=== PATIENT | male | born 1965 | race Caucasian/White ===

== ENCOUNTER 2020-08-20 13:04 | Outpatient (CLI) | payer OTHER, SELFPAY ==
--- NOTE | 2020-08-20 13:06 | MR_ITS ---
WS: [id number] INDICATION: Possible ruptured right biceps tendon TECHNIQUE: MRI of the right elbow without gadolinium enhancement. Imaging is limited due to patient p ositioning and inability to rotate arm. Imaging performed with elbow slightly bent. FINDINGS: MR of the right elbow without gadolinium enhancement. Some images degraded by patient dasha n. High-grade tear involving the distal biceps tendon with apparent complete tear at the radial tuber osity insertion. Edema at the radial tuberosity and surrounding soft tissues. Normal appearing tendon retracted approximately 4.0 cm from the radial tuberosity insertion. Normal bone marrow signal in the distal humerus. 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 Normal radial head and neck. Normal olecranon. No acute fractures. Diffuse soft tissue edema involving the antecubital soft tissues. MR/MR elbow RT wo con* [id number] IMPRESSION: Limited examination due to patient positioning described above. 1. High-grade tear of the distal biceps tendon with no normal tendon visualize d distally. Tendon appears avulsed from the radial tuberosity. 2. Normal-appearing tendon is retracted proximally approximately 4.0 cm with fluid involving the distal biceps tendon sheath. 3. Small amount of edema at the radial tuberosity. No visualized fractures. 4. Diffuse edema in the distal upper arm anterior soft tissues extending to th e antecubital fossa.
== END 2020-08-20 13:05 | disposition home or self-care (01) ==
LOC: RADWPI 13:10
PROVIDERS: PCP Family Medicine; Visit Provider Registered Nurse
DX: M25.521 Pain in right elbow (principal); S46.211A Strain of muscle, fascia and tendon of other parts of biceps, right arm, initial encounter; X58.XXXA Exposure to other specified factors, initial encounter; R60.0 Localized edema
CPT/HCPCS: 73221

== ENCOUNTER 2023-01-01 07:46 | Outpatient (CLI) | payer MEDICARE, BC, MEDICAID, SELFPAY ==
[2023-01-01 08:41] LABS: Creatinine Urine, Random 79 mg/dL (39-259); Microalbum Creatinine Ratio Ur 13 mg/dL (0-20); Microalbumin Random Urine 1 ug/dL (0-20)
[2023-01-01 08:43] LABS: Alanine Aminotransferase 21 U/L (0-41); Albumin Level 3.8 g/dL (3.5-5.2); Alkaline Phosphatase 115 U/L (40-130); Anion Gap 9.7 (5-19); Aspartate Amino Transferase 20 U/L (0-40); Blood Urea Nitrogen 10 mg/dL (6-20); Carbon Dioxide 32 mmol/L (22-29); Chloride 93 mmol/L (98-107); Chol HDL Ratio 2.54 mg/dL (1.0-5.00); Cholesterol 160 mg/dL (0-200); Globulin 2.6 g/dL (1.3-4.6); Glomerular Filtration Rate 99.6 mL/min (90-130); Glucose 201 mg/dL (65-115); HDL Cholesterol 63 mg/dL (60-100); LDL Cholesterol Calculated 88 mg/dL (50-129); Osmolality Calculated 275 mOsm/kg (285-295); Potassium 4.7 mmol/L (3.5-5.1); Sodium 130 mmol/L (136-145); Total Bilirubin 0.4 mg/dL (0.15-1.2); Total Protein 6.4 g/dL (6.6-8.7); Triglycerides 47 mg/dL (0-150)
[2023-01-01 08:46] LABS: Estmated Average Glucose 186; Hemoglobin A1C 8.1 % (4.0-6.0)
== END 2023-01-01 07:47 | disposition home or self-care (01) ==
PROVIDERS: PCP Family Medicine; Visit Provider Internal Medicine
DX: E10.9 Type 1 diabetes mellitus without complications (principal); Z79.899 Other long term (current) drug therapy
CPT/HCPCS: 36415; 80053; 80061; 82044; 83036

== ENCOUNTER → 2023-01-09 10:05 | Outpatient (BNVA) | payer MEDICAID, SELFPAY | PROVIDERS: PCP Family Medicine; Visit Provider Internal Medicine | DX: E11.9 Type 2 diabetes mellitus without complications (principal); E78.2 Mixed hyperlipidemia; Z79.4 Long term (current) use of insulin; Z79.84 Long term (current) use of oral hypoglycemic drugs | CPT/HCPCS: 99214 ==

== ENCOUNTER 2023-01-11 18:30 | Inpatient (IN) | payer MEDICARE, MEDICAID, SELFPAY ==
[2023-01-11] VITALS (22 sets, daily range): BP systolic 108–125; BP diastolic 56–65; PULSE 82–116; RESP 15–30; TEMP 36.1–36.6; O2SAT 94–99; BMI 34.0
--- NOTE | 2023-01-11 19:17 | ED_ITS ---
HPI - Nausea/Vomiting/Diarrhea General: Chief complaint: Nausea/Vomiting/Diarrhea Stated complaint: high bs Time Seen by Provider: 01/11/23 19:17 History of Present Illness: Mr. Butler is a 57-year-old gentleman with significant past medical history of type 1 diabetes presenting to the emergency department for nausea and generalized illness. He notes onset of symptoms starting last night and has had numerous episodes of nonbloody nonbilious emesis. He has noted his blood sugar elevated from baseline. He typically wears a sensor and pump. He tried replacing the unit however blood sugars have remained elevated. He notes increased thirst associated with his first not even been able to tolerate liquids. Overall course of symptoms has persisted. Intensity is moderate. He does note that they changed from a brand name to generic version of insulin within the past week. No other specific changes in health, exacerbating, or alleviating factors identified. Onset (ago): hour(s) Description of vomiting: watery Exacerbating factors: eating Relieving factors: none Associated symtoms: Reports other Review of Systems General: Reports: 10 or more systems reviewed and unremarkable except in HPI and below PFSH ED PFSH: Medical History (Updated 01/11/23 @ 21:56 by Elias Glass DO) Essential hypertension GERD (gastroesophageal reflux disease) HANNAH (obstructive sleep apnea) Status post proximal row carpectomy of wrist Type 1 diabetes mellitus Surgical History History of knee replacement History of nasal surgery Hx of appendectomy Family History Other Osteoporosis Social History Smoking and tobacco status: current every day smoker Second hand smoke exposure: Yes Alcohol intake: current Alcohol intake frequency: 3 or more drinks per day Alcohol type: beer Alcohol use comment: Admits to 6 cans of beer a day Physical Exam Const: COMMON NORMALS: alert GENERAL APPEARANCE: cooperative and well developed HENMT: COMMON NORMALS: normocephalic and atraumatic HEAD & SCALP: normocephalic and atraumatic Eye: COMMON NORMALS: conjunctivae normal CONJUNCTIVA: Yes conjunctivae normal SCLERA: sclerae normal Neck/C-Spine: COMMON NORMALS: supple GENERAL: Yes trachea midline Resp: COMMON NORMALS: normal respiratory effort EFFORT & INSPECTION: Yes able to speak in complete sentences Cardio: COMMON NORMALS: regular rhythm RATE: tachycardic RHYTHM: regular rhythm GI: COMMON NORMALS: Soft to palpation PALPATION: Yes Soft to palpation and No Tenderness to palpation present (GI) Extremity: GENERAL: Yes normal exam except as noted and No edema Neuro: COMMON NORMALS: moves all extremities SENSORIUM/ORIENTATION: Yes alert and No Orientation impaired Psych: COMMON NORMALS: mental status grossly normal and Normal thought process present THOUGHT PROCESS: Normal thought process present Course Vital Signs: Vital signs: Vital Signs Temperature 97.8 F 01/11/23 22:26 Pulse Rate 95 01/12/23 06:10 Respiratory Rate 22 H 01/12/23 06:10 Blood Pressure 115/67 01/12/23 06:10 Pulse Oximetry 97 01/12/23 06:10 Oxygen Delivery Me thod Room Air 01/11/23 22:45 Fraction of Inspir ed Oxygen 21 01/12/23 01:30 MDM - Nausea/Vomiting/Diarrhea Medical Decision Making 57-year-old gentleman type I diabetic presenting the emergency department for nausea and vomiting as well as elevated blood sugars. Patient is nontoxic. Abdominal exam is benign. Tachycardia and mild tachypnea noted. Initial blood glucose elevated above 400. Labs notable for leukocytosis which is nonspecific in this case, normal hemoglobin and platelet count. Metabolic panel with evidence of DKA and elevated creatinine well above baseline, in fact patient had laboratory studies 10 days ago which are drastically different. There is spurious hyponatremia as well as true hyponatremia. Adequate potassium at this time. ABG demonstrates acidemia and ketones are positive. Urinalysis pending. Patient given 2 L of IV fluid and insulin drip order set for DKA ordered. The results of ED evaluation were discussed with the patient including plan for admission due to requirement for level of care not available if discharged to prevent significant worsening/deterioration. Patient agreeable with plan. Discussed with hospitalist service who was agreeable to admit patient. Medical Records I reviewed the patient's medical records. Lab Data I reviewed the patient's lab results. 01/11/23 19:32 01/12/23 03:13 Laboratory Results WBC 16.5 10^3/uL (4.0-10.0) H 01/11/23 19:32 RBC 4.68 10^6/uL (4.1-5.3) 01/11/23 19:32 Hgb 16.2 g/dL (11.7-16.6) 01/11/23 19:32 Hct 47.2 % (42.0-52.0) 01/11/23 19:32 MCV 100.9 fl (80-94) H 01/11/23 19: MCH 34.6 pg (28.0-34.0) H 01/11/23 19: MCHC 34.3 g/dL (30.0-36.0) 01/11/23 19: RDW 12.5 % (12.1-15.1) 01/11/23: Plt Count 341 10^3/cmm (130-400) 01/11/23: MPV 9.0 fL (7.4-10.4) 01/11/23 19:32 Neut % (Auto) 82.6 % 01/11/23 19:32 Lymph % (Auto) 6.5 % 01/11/23 19:32 [place] % (Auto) 7.7 % 01/11/23 19:32 Eos % (Auto) 0.1 % 01/11/23: Baso % (Auto) 0.7 % 01/11/23: Neut # (Auto) 13.66 10^3/uL (1.8-7.7) H 01/11/23 19:32 Lymph # (Auto) 1.1 10^3/uL (0.8-4.8) 01/11/23 19:32 [place] # (Auto) 1.3 10^3/uL (0.2-0.9) H 01/11/23 19:32 Eos # (Auto) 0.0 10^3/uL (0.0-0.8) 01/11/23: Baso # (Auto) 0.1 10^3/uL (0.0-0.1) 01/11/23: Nucleated RBC % (auto) 0 % 01/11/23: Nucleated RBCs # 0.0 /100WBC 01/11/23 19:32 Specimen Type Arterial 01/11/23 19:52 Sample Site Radial, left 01/11/23 19:52 ABG pH 7.25 (7.35-7.45) L 01/11/23 19:52 ABG pCO2 25.4 mmHg (35-45) L 01/11/23 19:52 ABG pO2 83.9 mmHg (80.0-100.0) 01/11/23 19:52 ABG HCO3 11.1 mmol/L (22-26) L 01/11/23 19:52 ABG Base Excess -14.2 mmol/L (-2.0-2.0) L 01/11/23 19:52 Avi Test Pos 01/11/23 19:52 Hematocrit 46.9 % (42-52) 01/11/23 19:52 O2 Delivery Device None 01/11/23 19:52 Mileage Clerk ID [email or web address] 01/11/23 19:52 Sodium 124 mmol/L (136-145) L 01/11/23 19:32 Potassium 4.7 mmol/L (3.5-5.1) 01/11/23 19:32 Chloride 79 mmol/L (98-107) L 01/11/23 19:32 Carbon Dioxide 13 mmol/L (22-29) L 01/11/23 19:32 Anion Gap 36.7 (5-19) H 01/11/23 19:32 BUN 26 mg/dL (6-20) H 01/11/23 19:32 Creatinine 2.0 mg/dL (0.7-1.2) H 01/11/23 19:32 GFR Calculation 34.6 mL/min (90-130) L 01/11/23 19:32 Glucose 389 mg/dL (65-115) H 01/11/23 19:32 POC Glucose 438 mg/dL (70-110) H 01/11/23 19:25 Calculated Osmolality 279 mOsm/kg (285-295) L 01/11/23 19:32 Calcium 9.6 mg/dL (8.5-10.5) 01/11/23 19:32 Magnesium 2.1 mg/dL (1.7-2.3) 01/11/23 19:32 Total Bilirubin 0.5 mg/dL (0.15-1.2) 01/11/23 19:32 AST 25 U/L (0-40) 01/11/23 19:32 ALT 31 U/L (0-41) 01/11/23 19:32 Alkaline Phosphatase 173 U/L (40-130) H 01/11/23 19:32 Total Protein 7.9 g/dL (6.6-8.7) 01/11/23 19:32 Albumin 4.8 g/dL (3.5-5.2) 01/11/23 19:32 Globulin 3.1 g/dL (1.3-4.6) 01/11/23 19:32 Lipase 26 U/L (13-60) 01/11/23 19:32 Urine Color Yellow (Yellow) 01/11/23 20:18 Urine Appearance Sl hazy (CLEAR) A 01/11/23 20:18 Urine pH 5 (5-7) 01/11/23 20:18 Ur Specific [place] 1.020 (1.005-1.030) 01/11/23 20:18 Urine Protein 1+ (Negative) H 01/11/23 20:18 Urine Glucose (UA) 4+ (Normal) H 01/11/23 20:18 Urine Ketones 3+ (Negative) H 01/11/23 20:18 Urine Blood 2+ (Negative) H 01/11/23 20:18 Urine Nitrate Negative (Negative) 01/11/23 20:18 Urine Bilirubin Neg (Negative) 01/11/23 20:18 Urine Urobilinogen Norm mg/dL (Negative) 01/11/23 20:18 Ur Leukocyte Esterase Negative (Negative) 01/11/23 20:18 Urine RBC 0-4 /hpf (0-2) H 01/11/23 20:18 Urine WBC None /hpf (0-5) 01/11/23 20:18 Ur Squamous Epith Cells None /hpf (0-5) 01/11/23 20:18 Amorphous Sediment Not Reportable 01/11/23 20:18 Urine Bacteria 1+ /hpf (NONE) H 01/11/23 20:18 Serum Ketones Positive (Negative) H 01/11/23 19:32 Critical Care Time Critical Care Time: Critical Care Time: Yes Total Critical Care Time: 35 Attestation: Due to a high probability of clinically significant, possibly life threatening deterioration, the patient required my highest level of attention and preparedness to intervene emergently and I personally spent this critical care time directly and personally managing the patient. This critical care time included obtaining a history; examining the patient; pulse oximetry; ordering and review of laboratory and imaging studies; arranging urgent treatment with development of a management plan; evaluation of patient's response to treatment; frequent reassessment; and, discussions with other providers as applicable. It was exclusive of separately billable procedures. Primary system involved is metabolic. Discharge Plan Discharge Patient Disposition: Admitted As Inpatient Admit Provider: Elias Glass Clinical Impression: DKA (diabetic ketoacidosis) Condition: Stable Coding Level of Care Code ED Manager Online for Clarisa Yadav
[2023-01-11 19:29] LABS: Glucose Point of Care 438 mg/dL (70-110)
[2023-01-11] MEDS: ondansetron 2 mg/ML SDV 2 mL 4 MG IVP ×2 (19:39→23:28)
[2023-01-11] MEDS: sodium chloride 0.9% 1,000 ML 999 ML IV ×2 (19:39→22:56)
[2023-01-11 19:50] LABS: Basophils # 0.1 10^3/uL (0.0-0.1); Basophils % 0.7 %; Eosinophils % 0.1 %; Hematocrit 47.2 % (42.0-52.0); Hemoglobin 16.2 g/dL (11.7-16.6); Lymphocytes # 1.1 10^3/uL (0.8-4.8); Lymphocytes % 6.5 %; Mean Corpuscular HGB Conc 34.3 g/dL (30.0-36.0); Mean Corpuscular Hemoglobin 34.6 pg (28.0-34.0); Mean Corpuscular Volume 100.9 fl (80-94); Monocytes # 1.3 10^3/uL (0.2-0.9); Monocytes % 7.7 %; Neutrophils # 13.66 10^3/uL (1.8-7.7); Neutrophils % 82.6 %; Nucleated Red Blood Cells % 0 %; Platelet Count 341 10^3/cmm (130-400); Red Blood Count 4.68 10^6/uL (4.1-5.3); Red Cell Distribution Width 12.5 % (12.1-15.1); White Blood Count 16.5 10^3/uL (4.0-10.0)
--- NOTE | 2023-01-11 19:57 | ECG_ITS ---
[facility] Test Date: 2023-01-11 Pat Name: Gerardo Butler Department: Room: ICU12 Gender: Male [employer]ner: : 1965 Requested By: Holden Hernandez Order Number: [id number] Lori MD: Jorge Gonsalves M.D. Measurements Intervals Nelson Rate: 112 P: 71 DE: 147 QRS: -28 QRSD: 92 T: 71 QT: 327 QTc: 447 Interpretive Statements SINUS TACHYCARDIA LOW QRS VOLTAGE IN PRECORDIAL LEADS [QRS DEFLECTION < 1.0 mV IN CHEST LEADS] POSSIBLE ANTERIOR MYOCARDIAL INFARCTION , OF INDETERMINATE AGE [30 ms Q WAVE IN V3/V4, OR R < 0.2 mV IN V4] No previous ECG available for comparison Electronically Signed On 01-12-2023 18:36:21 CDT by Jorge Gonsalves M.D. [email or web address]
[2023-01-11 20:05] LABS: Ketone (Acetest) Serum Positive (Negative)
[2023-01-11 20:10] LABS: Alanine Aminotransferase 31 U/L (0-41); Albumin Level 4.8 g/dL (3.5-5.2); Alkaline Phosphatase 173 U/L (40-130); Anion Gap 36.7 (5-19); Aspartate Amino Transferase 25 U/L (0-40); Blood Urea Nitrogen 26 mg/dL (6-20); Calcium 9.6 mg/dL (8.5-10.5); Carbon Dioxide 13 mmol/L (22-29); Chloride 79 mmol/L (98-107); Globulin 3.1 g/dL (1.3-4.6); Glomerular Filtration Rate 34.6 mL/min (90-130); Glucose 389 mg/dL (65-115); Lipase 26 U/L (13-60); Osmolality Calculated 279 mOsm/kg (285-295); Potassium 4.7 mmol/L (3.5-5.1); Sodium 124 mmol/L (136-145); Total Bilirubin 0.5 mg/dL (0.15-1.2); Total Protein 7.9 g/dL (6.6-8.7)
--- NOTE | 2023-01-11 21:47 | P.HP_ITS ---
Providers/Chief Complaint Admitting Physician: Elias Glass DO Primary Care Provider: Ainsley Cope DO Chief Complaint: high bs History of Present Illness Gerardo Butler is a 57 year old male with type I DM diagnosed at age 8. He has recently been started on an insulin pump approximately 3 months ago. He went out of town and did not have Lantus and Humalog with him, or a extra pump. For the first time they placed it on the region on his left tricep. He reports that he bumped it in the car and on a few other occasions. After that his blood sugars kept elevating to the point where the meter just read high. Upon return home they did place a new insulin pump on his left thigh. However he shortly developed severe nausea and vomiting, stating that he threw up all day today. In the ED he is found to have DKA with a carbon dioxide level of 13 anion gap of 36 BUN/creatinine 26 and 2.0 his glucose is 389 via blood and 438 via fingerstick of note his last last hemoglobin A1c was 8.1 January 01. His potassium is normal at 4.6 no magnesium level done he is positive for serum ketones ABG is not available at this time Review of Systems Const: Denies: fever(s) or chills Eyes: Denies: change in vision ENMT: Denies: throat pain or nasal congestion Card: Denies: chest pain or palpitations Resp: Denies: dyspnea or productive cough GI: Reports: nausea and vomiting; Denies: abdominal pain or change in stool character : Denies: difficulty urinating or dysuria Musc: Denies: back pain or extremity pain Skin/Breast: Denies: rash or lesions Neuro: Denies: headache(s) or dizziness Psych: Denies: anxiety or depression Jaxson/Lymph: Denies: easy bruising or easy bleeding Medications/Allergies Home Medications Medication Instructions Recorded Confirmed Last Taken Type alprazolam 0.25 mg tablet 0.25 mg PO TID 10/08/22 01/09/23 Unknown History bupropion HCl 150 mg 24 hr tablet, 150 mg PO QAM 10/08/22 01/09/23 Unknown History extended release diphenhydramine HCl 25 mg tablet 25 mg PO ONCE PRN 10/08/22 01/09/23 Unknown History (Allergy Relief (diphenhydramine)) duloxetine 60 mg capsule,delayed 60 mg PO DAILY 10/08/22 01/09/23 Unknown History release famotidine 20 mg tablet 20 mg PO DAILY 10/08/22 01/09/23 Unknown History insulin aspart U-100 100 unit/mL See Rx Instructions SUBCUT TID 10/08/22 01/09/23 Unknown History (3 mL) subcutaneous pen (Novolog FlexPen U-100 Insulin aspart) insulin pump cart,automated,BT #10 ea 10/08/22 01/09/23 Unknown Rx (Omnipod 5 G6 Pods (Gen 5) subcutaneous cartridge) insulin pump cartridge,automated #1 ea 10/08/22 01/09/23 Unknown Rx dose,BT with controller subcutaneous (Omnipod 5 G6 Intro Kit (Gen 5) subcutaneous cartridge with controller) lisinopril 5 mg tablet 5 mg PO DAILY 10/08/22 01/09/23 Unknown History metformin 1,000 mg tablet,extended 1,000 mg PO BID 10/08/22 01/09/23 Unknown History release 24hr metoprolol succinate 25 mg 12.5 mg PO BID 10/08/22 01/09/23 Unknown History tablet,extended release 24 hr multivitamin 1 tab PO DAILY 10/08/22 01/09/23 Unknown History tadalafil 20 mg tablet 20 mg PO DAILY PRN 10/08/22 01/09/23 Unknown History terbinafine HCl 250 mg tablet 250 mg PO DAILY 10/08/22 01/09/23 Unknown History tizanidine 4 mg tablet 4 mg PO Q6H PRN 10/08/22 01/09/23 Unknown History triamterene 37.5 1 tab PO DAILY 10/08/22 01/09/23 Unknown History mg-hydrochlorothiazide 25 mg tablet valacyclovir 1 gram tablet 1,000 mg PO BID 10/08/22 01/09/23 Unknown History insulin glargine 100 unit/mL (3 30 unit (0.3 mL) SUBCUT BID 90 11/18/22 01/09/23 Unknown Rx mL) subcutaneous pen (Lantus days #54 mL Solostar U-100 Insulin) insulin lispro 100 unit/mL 100 unit SUBCUT DAILY 90 days #90 12/29/22 01/09/23 Unknown Rx subcutaneous solution (Humalog mL U-100 Insulin) Allergies Allergy/AdvReac Type Severity Reaction Status Date / Time No Known Allergies Allergy Unverified 01/09/23 07:22 PFSH Acute PFSH: Medical History (Updated 01/11/23 @ 21:56 by Elias Glass DO) Essential hypertension GERD (gastroesophageal reflux disease) HANNAH (obstructive sleep apnea) Status post proximal row carpectomy of wrist Type 1 diabetes mellitus Surgical History History of knee replacement History of nasal surgery Hx of appendectomy Family History Other Osteoporosis Social History Smoking and tobacco status: current every day smoker Second hand smoke exposure: Yes Alcohol intake: current Alcohol intake frequency: 3 or more drinks per day Alcohol type: beer Alcohol use comment: Admits to 6 cans of beer a day Vitals/I&O/Wt Last Vital Signs Temp 97.0 F L 01/11/23 19:10 Pulse 116 H 01/11/23 19:10 Resp 22 H 01/11/23 19:10 BP 125/65 01/11/23 19:10 Pulse Ox 98 01/11/23 19:10 Weight last 48 hrs Weight 104.326 kg Physical Exam Narrative: Patient is a 57-year-old obese white male in no acute distress at time of examination. He appears about 10 years older than his stated age, he is an obvious smoker and admits the same. Neuro: AXO x3, patient is nonfocal HEENT: NC/AT, PERRLA, no scleral icterus. Mucous membranes dry erythematous, neck is supple no JVD carotid bruits or lymphadenopathy Heart: Regular distant heart sounds no loud murmur auscultated Lungs: Diminished throughout and expiratory wheeze, decreased airflow Abdomen: Protuberant positive bowel sounds nontender nondistended do not appreciate hepatosplenomegaly Extremities: No clubbing cyanosis or edema Psych: Mood and affect appropriate Skin: No lesions or rashes noted Data 01/11/23 19:32 01/11/23 19:32 Micro: Microbiology 01/11/23 19:32 Blood Culture - Preliminary Blood SPECIMEN COLLECTED 01/11/23 19:40 Blood Culture - Preliminary Blood SPECIMEN COLLECTED ABG Interpretation 1: Not resulted A&P Assessment and plan (1) DKA (diabetic ketoacidosis): Patient will be admitted to the ICU for DKA protocol, including insulin, including to IV fluids frequent BMP monitoring and aggressive therapy until acidosis and ketosis resolves. Patient was on Lantus 32 units twice daily and NovoLog per sliding scale. Patient have may have medications with sips We will need to stop lisinopril due to MAXI (2) Hyperlipemia, mixed: I do not see what medication he takes for hypercholesterolemia (3) Diabetes type 1, uncontrolled: As above (4) HANNAH (obstructive sleep apnea): Will order CPAP overnight family to find out what his settings were Attestations Medical Necessity Statement*: Patient in DKA requiring ICU level care. I suspect he will need 2 midnights to stabilize Coding Level of Care Code Acute Code for [facility] Fwd Diagnoses DKA (diabetic ketoacidosis) E11.10 Hyperlipemia, mixed E78.2 Diabetes type 1, uncontrolled HANNAH (obstructive sleep apnea) G47.33
[2023-01-11] MEDS: insulin regular-human 250 UNIT in sodium chloride 0.9% 250 ML 7.98 UNIT IV (21:54)
[2023-01-11 22:02] LABS: Magnesium 2.1 mg/dL (1.7-2.3)
[2023-01-11 22:28] LABS: Glucose Point of Care 322 mg/dL (70-110)
[2023-01-11 22:38] LABS: Glucose Point of Care 258 mg/dL (70-110)
[2023-01-11] MEDS: heparin 5,000 unit/mL INJ 1 mL 5000 UNIT SUBCUT (23:00)
[2023-01-12] VITALS (259 sets, daily range): BP systolic 98–145; BP diastolic 56–81; PULSE 80–113; RESP 13–34; TEMP 36.8–36.9; O2SAT 84–100
[2023-01-12] MEDS: D5-NS 0.45% + KCL 20 mEq 20 MEQ/1,000 ML BAG 75 MEQ IV ×2 (00:02→09:00)
[2023-01-12] MEDS: sodium chloride 0.9% 1,000 ML 150 ML IV ×2 (00:04→07:13)
[2023-01-12 00:15] LABS: ABG PCO2 25.4 mmHg (35-45); ABG PH Result 7.25 (7.35-7.45); Arterial Blood Gas Hematocrit 46.9 % (42-52); Base Excess ABG -14.2 mmol/L (-2.0-2.0); Blood Gas Allen Test Pos; Blood Gas Sample Site Radial, left; Blood Gas Sample Type Arterial; HCO3 ABG 11.1 mmol/L (22-26); PO2 ABG 83.9 mmHg (80.0-100.0)
[2023-01-12 00:20] LABS: Add Urine Microscopic? YES; Bilirubin Urine Neg (Negative); Blood Urine 2+ (Negative); Glucose Urine UA 4+ (Normal); Ketones Urine 3+ (Negative); Leukocyte Esterase Urine Negative (Negative); Nitrate Urine Negative (Negative); Protein Urine 1+ (Negative); Urine Appearance SL Hazy (CLEAR); Urine Color Yellow (Yellow); Urobilinogen Urine Norm (Negative); pH Urine 5 (5-7)
[2023-01-12 00:25] LABS: Bacteria Urine 1+ /hpf; RBC Urine 0-4 /hpf (0-2)
[2023-01-12 00:35] LABS: Glucose Point of Care 155 mg/dL (70-110)
[2023-01-12 02:08] LABS: Glucose Point of Care 139 mg/dL (70-110)
[2023-01-12 03:07] LABS: Glucose Point of Care 154 mg/dL (70-110)
[2023-01-12 03:44] LABS: Anion Gap 14.9 (5-19); Blood Urea Nitrogen 20 mg/dL (6-20); Calcium 8.7 mg/dL (8.5-10.5); Carbon Dioxide 27 mmol/L (22-29); Chloride 90 mmol/L (98-107); Glomerular Filtration Rate 52.2 mL/min (90-130); Glucose 149 mg/dL (65-115); Osmolality Calculated 269 mOsm/kg (285-295); Potassium 4.9 mmol/L (3.5-5.1); Sodium 127 mmol/L (136-145)
[2023-01-12 04:22] LABS: Glucose Point of Care 162 mg/dL (70-110)
[2023-01-12 05:54] LABS: Glucose Point of Care 178 mg/dL (70-110)
[2023-01-12 06:21] LABS: Glucose Point of Care 159 mg/dL (70-110)
[2023-01-12 07:07] LABS: Glucose Point of Care 167 mg/dL (70-110)
[2023-01-12] MEDS: heparin 5,000 unit/mL INJ 1 mL 5000 UNIT SUBCUT ×3 (07:13→22:39)
[2023-01-12 07:28] LABS: Ketone (Acetest) Serum Negative (Negative)
[2023-01-12 07:29] LABS: Blood Urea Nitrogen 17 mg/dL (6-20); Calcium 8.1 mg/dL (8.5-10.5); Carbon Dioxide 25 mmol/L (22-29); Chloride 90 mmol/L (98-107); Glomerular Filtration Rate 62.4 mL/min (90-130); Glucose 175 mg/dL (65-115); Osmolality Calculated 266 mOsm/kg (285-295); Sodium 125 mmol/L (136-145)
[2023-01-12 07:33] LABS: Anion Gap 14.2 (5-19); Potassium 4.2 mmol/L (3.5-5.1)
[2023-01-12 08:29] LABS: Glucose Point of Care 178 mg/dL (70-110)
[2023-01-12 09:09] LABS: Glucose Point of Care 180 mg/dL (70-110)
[2023-01-12] MEDS: insulin glargine 100 units/1 mL 32 UNIT SUBCUT ×2 (10:02→17:40)
[2023-01-12 10:10] LABS: Glucose Point of Care 183 mg/dL (70-110)
[2023-01-12 11:20] LABS: Glucose Point of Care 207 mg/dL (70-110)
[2023-01-12 12:14] LABS: Glucose Point of Care 171 mg/dL (70-110)
[2023-01-12] MEDS: insulin lispro 100 unit/1 mL SUBCUT ×3 (12:16→21:12)
[2023-01-12] MEDS: sodium chloride 0.9% 1,000 ML 75 ML IV (13:09)
[2023-01-12 17:20] LABS: Glucose Point of Care 267 mg/dL (70-110)
--- NOTE | 2023-01-12 18:35 | P.PN_ITS ---
Subjective Subjective: He is doing well. Feeling much better. Denies abdominal pain, nausea or vomiting. Tolerated lunch well. He bumped into something causing pump catheter needle to be bent, as per his they have been traveling, and he did not have a backup causing him to go into DKA. They have a backup set at home which she is going to bring so that we can try his pump prior to discharge to confirm that it is working. Discussed otherwise we may give him a refill for insulin pens until pump can be sorted out. They state that he has Lantus at home. Vitals/I&O/Wt Last Vital Signs Temp 97.8 F 01/11/23 22:26 Pulse 102 H 01/12/23 18:10 Resp 21 H 01/12/23 18:10 BP 136/75 01/12/23 18:10 Pulse Ox 96 01/12/23 18:10 O2 Del Method Room Air 01/11/23 22:45 FiO2 21 01/12/23 07:33 01/12/23 01/12/23 01/12/23 06:59 14:59 22:59 Intake Total 1123.298 / 0172.035 4118.24 / 2338.24 350 / 2688.24 Output Total 1100 / 1100 1600 / 1600 Balance 23.298 / 27.421 2338.24 / 2338.24 -1250 / 1088.24 Weight last 48 hrs Weight 104.326 kg Weight 104.326 kg Physical Exam Narrative: Accompanied by his at bedside. Const: COMMON NORMALS: patient oriented x3 and alert GENERAL APPEARANCE: cooperative ORIENTATION/CONSCIOUSNESS: Yes awake HENMT: COMMON NORMALS: oropharynx normal Neck/C-Spine: COMMON NORMALS: no JVD Resp: COMMON NORMALS: normal respiratory effort and clear to auscultation bilaterally AUSCULTATION: clear to auscultation bilaterally Cardio: COMMON NORMALS: no JVD, regular rhythm, S1 normal heart sound present, S2 normal heart sound present and No murmurs present (Cardio) RHYTHM: regular rhythm HEART SOUNDS: S1 normal heart sound present and S2 normal heart sound present GI: COMMON NORMALS: Normal to inspection, nondistended, normoactive bowel sounds present, Soft to palpation and non-tender PALPATION: Yes Soft to palpation Extremity: COMMON NORMALS: no joint enlargement and no pedal edema Neuro: COMMON NORMALS: patient oriented x3 and moves all extremities SENSORIUM/ORIENTATION: Yes alert Skin: COMMON NORMALS: no rashes or lesions noted GENERAL SKIN EXAM: no rashes or lesions noted Data 01/11/23 19:32 01/12/23 07:05 Micro: Microbiology 01/11/23 19:32 Blood Culture - Preliminary Blood 01/11/23 19:40 Blood Culture - Preliminary Blood SPECIMEN COLLECTED A&P Assessment and plan (1) DKA (diabetic ketoacidosis): Anion gap closed. Bicarb improved. No abdominal pain, discomfort nausea or vomiting. Feeling better. Transitioned to subcu insulin, used to take 32 units twice daily Lantus. Added sliding scale. May be at risk of hypo or hyperglycemia as this is no longer his usual regimen. Monitor glucose ACHS. Latest endocrinology note reviewed. Follow-up chemistry in the morning, follow-up magnesium, phosphorus. Continue IV hydration for now, de-escalate IVF to 75 mill per hour NS. If co ntinues to tolerate oral intake stop IV fluid. His states it was a mechanical malfunction of the catheter needle on the pump after he bumped into something. His is bringing backup set for his insulin pump which we hopefully be able to try to confirm that it is working prior to discharge. Discussed with discharge planning. (2) Hyperlipemia, mixed: I do not see what medication he takes for hypercholesterolemia (3) Diabetes type 1, uncontrolled: As above (4) HANNAH (obstructive sleep apnea): CPAP overnight Plan Abnormal blood culture: Reported gram-positive cocci 1/4 bottles from original culture. Follow-up results. May suspect contaminant. Attestations Medical Necessity Statement*: Continue admission for assessment and management post DKA, transition to subcut aneous insulin, reassessment, possible discharge home. Critical Care Time: 20 min Diagnoses DKA (diabetic ketoacidosis) E11.10 Hyperlipemia, mixed E78.2 Diabetes type 1, uncontrolled HANNAH (obstructive sleep apnea) G47.33
[2023-01-12 19:00] LABS: Sodium 121 mmol/L (136-145)
[2023-01-12 20:27] LABS: Glucose Point of Care 228 mg/dL (70-110)
[2023-01-12] MEDS: metoprolol succinate ER (24 HR) 25 mg Tablet 12.5 MG PO (22:38)
[2023-01-12 23:44] LABS: Glucose Point of Care 52 mg/dL (70-110)
[2023-01-13 00:33] LABS: Glucose Point of Care 141 mg/dL (70-110)
[2023-01-13 00:53] VITALS: RESP 16; O2SAT 95
[2023-01-13 03:48] VITALS: BP 119/73; PULSE 83; RESP 17; O2SAT 97
[2023-01-13 05:19] VITALS: PULSE 73
[2023-01-13 05:44] LABS: Basophils # 0.1 10^3/uL (0.0-0.1); Basophils % 0.6 %; Eosinophils # 0.2 10^3/uL (0.0-0.8); Eosinophils % 2.1 %; Hematocrit 38.5 % (42.0-52.0); Hemoglobin 13.5 g/dL (11.7-16.6); Lymphocytes % 23.3 %; Mean Corpuscular HGB Conc 35.1 g/dL (30.0-36.0); Mean Corpuscular Hemoglobin 33.2 pg (28.0-34.0); Mean Corpuscular Volume 94.6 fl (80-94); Mean Platelet Volume 8.8 fL (7.4-10.4); Monocytes # 0.8 10^3/uL (0.2-0.9); Neutrophils # 5.63 10^3/uL (1.8-7.7); Neutrophils % 64.1 %; Nucleated Red Blood Cells % 0 %; Platelet Count 269 10^3/cmm (130-400); Red Blood Count 4.07 10^6/uL (4.1-5.3); Red Cell Distribution Width 12.5 % (12.1-15.1); White Blood Count 8.8 10^3/uL (4.0-10.0)
[2023-01-13 06:00] VITALS: BMI 38.4
[2023-01-13 06:03] LABS: Alanine Aminotransferase 29 U/L (0-41); Albumin Level 3.4 g/dL (3.5-5.2); Alkaline Phosphatase 90 U/L (40-130); Anion Gap 10.6 (5-19); Aspartate Amino Transferase 34 U/L (0-40); Blood Urea Nitrogen 9 mg/dL (6-20); Calcium 8.6 mg/dL (8.5-10.5); Carbon Dioxide 28 mmol/L (22-29); Chloride 94 mmol/L (98-107); Globulin 2.2 g/dL (1.3-4.6); Glomerular Filtration Rate 116.2 mL/min (90-130); Glucose 112 mg/dL (65-115); Magnesium 1.9 mg/dL (1.7-2.3); Osmolality Calculated 267 mOsm/kg (285-295); Phosphorus 2.6 mg/dL (2.5-4.5); Potassium 3.6 mmol/L (3.5-5.1); Sodium 129 mmol/L (136-145); Total Bilirubin 0.3 mg/dL (0.15-1.2); Total Protein 5.6 g/dL (6.6-8.7)
[2023-01-13] MEDS: buPROPion XL (24 HR) 150 mg Tablet PO (06:26)
[2023-01-13] MEDS: sodium chloride 0.9% 1,000 ML 75 ML IV (06:26)
[2023-01-13] MEDS: heparin 5,000 unit/mL INJ 1 mL 5000 UNIT SUBCUT (06:26)
--- NOTE | 2023-01-13 06:34 | PC.NURSE ---
Patient has a dexcom for accu. Pts machine shows 108.
[2023-01-13 08:00] VITALS: BP 142/87; PULSE 67; RESP 17; TEMP 36.2; O2SAT 98
[2023-01-13 08:59] LABS: Glucose Point of Care 256 mg/dL (70-110)
[2023-01-13] MEDS: atorvastatin 40 mg Tablet 20 MG PO (09:00)
[2023-01-13] MEDS: metoprolol succinate ER (24 HR) 25 mg Tablet 12.5 MG PO (09:00)
[2023-01-13] MEDS: duloxetine 60 mg Capsule PO (09:01)
[2023-01-13 11:41] LABS: Glucose Point of Care 217 mg/dL (70-110)
[2023-01-13] MEDS: [UNRECOGNIZED DRUG - OTHER] XX ×2 (11:54→11:56)
--- NOTE | 2023-01-13 11:56 | P.DS_ITS ---
Discharge Providers Date of Admission: 01/11/23 22:31 Date of Discharge: January 13, 2023 Attending Provider at Admission: Elias Glass DO Attending Provider at Discharge: Bar Boland Primary Care Provider: Ainsley Cope DO Diagnoses at Discharge Discharge Diagnosis (1) DKA (diabetic ketoacidosis): Status: Acute (2) Hyperlipemia, mixed: Status: Acute (3) Diabetes type 1, uncontrolled: Status: Acute (4) HANNAH (obstructive sleep apnea): Status: Acute Reason for Visit Reason for Visit: [facility] Hospital Course Hospital Course Pleasant 57-year-old gentleman was admitted and treated for DKA as per spouse sounds like there was malfunction of the infusion catheter needle on his insulin pump after it got bent bumping into something and due to traveling he did not have backup. It appears he was also unaware that the insulin was giving him baseline infusion of insulin and in addition to the boluses he is used to giving himself. He received treatment with insulin drip, IV fluids, replace electrolytes, DKA resolved. He is feeling much better. Please note that while switching over to 30 units twice daily glargine as per his prior dosing after insulin drip his glucose did come down to as low as 52 last night around 11:40 PM and this dose would likely be too high for him in case he needs to switch to subcu insulin. Currently continues on 2 units/h basal infusion on the pump which was brought to the hospital and confirmed functioning with replacement of the catheter needle. In addition on presentation with hyponatremia, sodium down as low as 124, lowest 121, likely secondary to also being on HCTZ at home. Asked to stop diuretics at this time. Please reassess sodium. Of note, discussed with him also incidentally noted gram-positive cocci in 1/4 bottles on blood culture on admission. This is coming back as Staph aureus and is thought to be due to contamination of the sample. Physical Exam Const: COMMON NORMALS: patient oriented x3 and alert GENERAL APPEARANCE: cooperative ORIENTATION/CONSCIOUSNESS: Yes awake HENMT: COMMON NORMALS: oropharynx normal Neck/C-Spine: COMMON NORMALS: no JVD Resp: COMMON NORMALS: normal respiratory effort and clear to auscultation bilaterally AUSCULTATION: clear to auscultation bilaterally Cardio: COMMON NORMALS: no JVD, regular rhythm, S1 normal heart sound present, S2 normal heart sound present and No murmurs present (Cardio) RHYTHM: regular rhythm HEART SOUNDS: S1 normal heart sound present and S2 normal heart sound present GI: COMMON NORMALS: Normal to inspection, nondistended, normoactive bowel sounds present, Soft to palpation and non-tender PALPATION: Yes Soft to palpation Extremity: COMMON NORMALS: no joint enlargement and no pedal edema Neuro: COMMON NORMALS: patient oriented x3 and moves all extremities SENSORIUM/ORIENTATION: Yes alert Skin: COMMON NORMALS: no rashes or lesions noted GENERAL SKIN EXAM: no rashes or lesions noted Discharge Data Studies Completed and Pending Pending at discharge Category Date Time Status Blood Culture Stat Lab 01/11/23 19:40 Results Complete Blood Count w/Auto AM LABS Lab 01/14/23 04:00 Ordered Complete Blood Count w/Auto AM LABS Lab 01/15/23 04:00 Ordered Comprehensive Metabolic Panel AM LABS Lab 01/14/23 04:00 Ordered Comprehensive Metabolic Panel AM LABS Lab 01/15/23 04:00 Ordered Laboratory Results WBC 8.8 10^3/uL (4.0-10.0) 01/13/23 04:37 RBC 4.07 10^6/uL (4.1-5.3) L 01/13/23 04:37 Hgb 13.5 g/dL (11.7-16.6) 01/13/23 04:37 Hct 38.5 % (42.0-52.0) L 01/13/23 04:37 MCV 94.6 fl (80-94) H 01/13/23 04:37 MCH 33.2 pg (28.0-34.0) 01/13/23 04:37 MCHC 35.1 g/dL (30.0-36.0) 01/13/23 04:37 RDW 12.5 % (12.1-15.1) 01/13/23 04:37 Plt Count 269 10^3/cmm (130-400) 01/13/23 04:37 MPV 8.8 fL (7.4-10.4) 01/13/23 04:37 Neut % (Auto) 64.1 % 01/13/23 04:37 Lymph % (Auto) 23.3 % 01/13/23 04:37 [place] % (Auto) 9.0 % 01/13/23 04:37 Eos % (Auto) 2.1 % 01/13/23 04:37 Baso % (Auto) 0.6 % 01/13/23 04:37 Neut # (Auto) 5.63 10^3/uL (1.8-7.7) 01/13/23 04:37 Lymph # (Auto) 2.0 10^3/uL (0.8-4.8) 01/13/23 04:37 [place] # (Auto) 0.8 10^3/uL (0.2-0.9) 01/13/23 04:37 Eos # (Auto) 0.2 10^3/uL (0.0-0.8) 01/13/23 04:37 Baso # (Auto) 0.1 10^3/uL (0.0-0.1) 01/13/23 04:37 Nucleated RBC % (auto) 0 % 01/13/23 04:37 Nucleated RBCs # 0.0 /100WBC 01/13/23 04:37 Specimen Type Arterial 01/11/23 19:52 Sample Site Radial, left 01/11/23 19:52 ABG pH 7.25 (7.35-7.45) L 01/11/23 19:52 ABG pCO2 25.4 mmHg (35-45) L 01/11/23 19:52 ABG pO2 83.9 mmHg (80.0-100.0) 01/11/23 19:52 ABG HCO3 11.1 mmol/L (22-26) L 01/11/23 19:52 ABG Base Excess -14.2 mmol/L (-2.0-2.0) L 01/11/23 19:52 Avi Test Pos 01/11/23 19:52 Hematocrit 46.9 % (42-52) 01/11/23 19:52 O2 Delivery Device None 01/11/23 19:52 Delinquent Tax Collection Assistant ID [email or web address] 01/11/23 19:52 Sodium 129 mmol/L (136-145) L 01/13/23 04:37 Potassium 3.6 mmol/L (3.5-5.1) 01/13/23 04:37 Chloride 94 mmol/L (98-107) L 01/13/23 04:37 Carbon Dioxide 28 mmol/L (22-29) 01/13/23 04:37 Anion Gap 10.6 (5-19) 01/13/23 04:37 BUN 9 mg/dL (6-20) 01/13/23 04:37 Creatinine 0.7 mg/dL (0.7-1.2) 01/13/23 04:37 GFR Calculation 116.2 mL/min (90-130) 01/13/23 04:37 Glucose 112 mg/dL (65-115) 01/13/23 04:37 POC Glucose 217 mg/dL (70-110) H 01/13/23 11:39 Calculated Osmolality 267 mOsm/kg (285-295) L 01/13/23 04:37 Calcium 8.6 mg/dL (8.5-10.5) 01/13/23 04:37 Phosphorus 2.6 mg/dL (2.5-4.5) 01/13/23 04:37 Magnesium 1.9 mg/dL (1.7-2.3) 01/13/23 04:37 Total Bilirubin 0.3 mg/dL (0.15-1.2) 01/13/23 04:37 AST 34 U/L (0-40) 01/13/23 04:37 ALT 29 U/L (0-41) 01/13/23 04:37 Alkaline Phosphatase 90 U/L (40-130) 01/13/23 04:37 Total Protein 5.6 g/dL (6.6-8.7) L 01/13/23 04:37 Albumin 3.4 g/dL (3.5-5.2) L 01/13/23 04:37 Globulin 2.2 g/dL (1.3-4.6) 01/13/23 04:37 Lipase 26 U/L (13-60) 01/11/23 19:32 Urine Color Yellow (Yellow) 01/11/23 20:18 Urine Appearance Sl hazy (CLEAR) A 01/11/23 20:18 Urine pH 5 (5-7) 01/11/23 20:18 Ur Specific [place] 1.020 (1.005-1.030) 01/11/23 20:18 Urine Protein 1+ (Negative) H 01/11/23 20:18 Urine Glucose (UA) 4+ (Normal) H 01/11/23 20:18 Urine Ketones 3+ (Negative) H 01/11/23 20:18 Urine Blood 2+ (Negative) H 01/11/23 20:18 Urine Nitrate Negative (Negative) 01/11/23 20:18 Urine Bilirubin Neg (Negative) 01/11/23 20:18 Urine Urobilinogen Norm mg/dL (Negative) 01/11/23 20:18 Ur Leukocyte Esterase Negative (Negative) 01/11/23 20:18 Urine RBC 0-4 /hpf (0-2) H 01/11/23 20:18 Urine WBC None /hpf (0-5) 01/11/23 20:18 Ur Squamous Epith Cells None /hpf (0-5) 01/11/23 20:18 Amorphous Sediment Not Reportable 01/11/23 20:18 Urine Bacteria 1+ /hpf (NONE) H 01/11/23 20:18 Serum Ketones Negative (Negative) 01/12/23 07:05 Vitals Last Vital Signs Temp 97.1 F L 01/13/23 08:00 Pulse 67 01/13/23 08:00 Resp 17 01/13/23 08:00 BP 142/87 01/13/23 08:00 Pulse Ox 98 01/13/23 08:00 O2 Del Method CPAP 01/13/23 08:00 FiO2 21 01/12/23 07:33 Discharge Plan Discharge Patient Disposition: Home Condition: Stable Prescriptions: Continued alprazolam 0.25 mg tablet 0.25 mg PO TID tadalafil 20 mg tablet 20 mg PO DAILY PRN (Reason: Sexual Activity) Rx Instructions: administer approximately 30min before sexual activity; do not use more than 1 dose per 24hrs terbinafine HCl 250 mg tablet 250 mg PO DAILY bupropion HCl 150 mg tablet extended release 24 hr 150 mg PO QAM tizanidine 4 mg tablet 4 mg PO Q6H PRN (Reason: Muscle Spasm) lisinopril 5 mg tablet 5 mg PO DAILY duloxetine 60 mg capsule,delayed release(DR/EC) 60 mg PO DAILY diphenhydramine HCl [Allergy Relief(diphenhydramin)] 25 mg tablet 25 mg PO ONCE PRN (Reason: Allergy Symptoms) metoprolol succinate 25 mg tablet extended release 24 hr 12.5 mg PO BID metformin 1,000 mg tablet extended release 24 hr 1,000 mg PO BID multivitamin Tablet 1 tab PO DAILY insulin aspart U-100 [Novolog FlexPen U-100 Insulin] 100 unit/mL (3 mL) insulin pen See Rx Instructions SUBCUT TID Rx Instructions: persliding scale subcutaneously three times daily; (DME) Omnipod 5 G6 Pods (Gen 5) Cartridge See Rx Instructions .ROUTE .MEDSUPPLY Qty: 10 3RF Rx Instructions: change pod every 3 days (DME) Omnipod 5 G6 Intro Kit (Gen 5) Cartridge See Rx Instructions .ROUTE .MEDSUPPLY Qty: 1 0RF Rx Instructions: As directed insulin lispro [Humalog U-100 Insulin] 100 unit/mL solution 100 unit SUBCUT DAILY 90 Days Qty: 90 0RF Rx Instructions: 100 units daily via pump Lantus Solostar U-100 Insulin 100 unit/mL (3 mL) insulin pen 32 unit SUBCUT BID cetirizine 10 mg tablet 10 mg PO DAILY lovastatin 20 mg tablet 20 mg PO DAILY Discontinued triamterene-hydrochlorothiazid 37.5-25 mg tablet 1 tab PO DAILY Discharge Orders: Discharge Order (Routine); Ordered 01/13/23 Ordered By: Bar oBland Referrals: Napoleon Knutson MD [Physician] - 2 weeks (dka) Ainsley Cope DO [Primary Care Provider] - 4-7 days Discharge Diet: Diabetic and Low Cholesterol Patient Instructions: Hyponatremia (GEN), Diabetic Ketoacidosis (GEN) Activity Restrictions/Additional Instructions: Please continue insulin pump. Do not stop insulin pump unless there is additional malfunction corrected to do so by your doctor since you need continuous insulin baseline. If pump is not functioning you may need to switch to subcutaneous insulin. Please note that on 32 units Lantus twice daily your blood glucose was down as low as 52 late last night, so this dose may be too high for you. If you need to switch to subcutaneous would start at 25 units twice a day, monitor blood glucose. In case you are not feeling well, eating extremely tired, weak, faint, having nausea vomiting, unable to tolerate food or drink or your medications, or other symptoms of DKA, please seek medical attention. Please stop triamterene-HCTZ at current time due to low sodium level. These medications can contribute to low sodium. At the primary doctor follow-up your sodium level at next visit. Discharge Attestations Time Spent in Discharge Care*: greater than 30 min Quality Metrics Clinical Quality Measures [ No reported AMI, CVA or VTE this stay] Coding Level of Care Code 23863 Total time (in minutes) for Discharge: 45 Diagnoses DKA (diabetic ketoacidosis) E11.10 Hyperlipemia, mixed E78.2 Diabetes type 1, uncontrolled HANNAH (obstructive sleep apnea) G47.33
[2023-01-13 12:00] VITALS: BP 128/78; PULSE 79; RESP 19; TEMP 36.4; O2SAT 96
[2023-01-13 12:14] LABS: Glucose Point of Care 197 mg/dL (70-110)
[2023-01-13 12:42] VITALS: BP 128/78; PULSE 79; RESP 19; TEMP 36.4; O2SAT 96
== END 2023-01-13 14:08 | disposition home or self-care (01) | DRG 919 ==
LOC: ER 20:44 → ICU 21:18 → MEDSURG 01-12 21:59
PROVIDERS: Admitting Provider Internal Medicine; Emergency Provider Emergency Medicine; PCP Family Medicine; Visit Provider Internal Medicine
DX: T85.694A Other mechanical complication of insulin pump, initial encounter (principal); E10.10 Type 1 diabetes mellitus with ketoacidosis without coma; E87.1 Hypo-osmolality and hyponatremia; E78.2 Mixed hyperlipidemia; G47.33 Obstructive sleep apnea (adult) (pediatric); T50.2X5A Adverse effect of carbonic-anhydrase inhibitors, benzothiadiazides and other diuretics, initial encounter; Z96.41 Presence of insulin pump (external) (internal); K21.9 Gastro-esophageal reflux disease without esophagitis; F17.200 Nicotine dependence, unspecified, uncomplicated; F10.10 Alcohol abuse, uncomplicated
CPT/HCPCS: 36415; 36416; 36600; 80048; 80053; 81001; 82009; 82803; 82962; 83690; 83735; 84100; 84295; 85025; 87040; 87150; 87205; 93005; 94660; 96365; 96366; 96367; 96372; 96375; 96376; 99285; J1644; J1815; J2405; J7030; J7050

== ENCOUNTER → 2023-01-15 08:05 | Outpatient (BNVA) | payer MEDICARE, MEDICAID, SELFPAY | PROVIDERS: PCP Family Medicine; Visit Provider Internal Medicine | DX: Z09 Encounter for follow-up examination after completed treatment for conditions other than malignant neoplasm (principal); E10.10 Type 1 diabetes mellitus with ketoacidosis without coma; E78.2 Mixed hyperlipidemia; Z79.84 Long term (current) use of oral hypoglycemic drugs; Z79.4 Long term (current) use of insulin | CPT/HCPCS: 99213 ==

== ENCOUNTER → 2023-04-13 08:35 | Outpatient (BNVA) | payer MEDICARE, MEDICAID, SELFPAY | PROVIDERS: PCP Family Medicine; Visit Provider Internal Medicine | DX: E11.9 Type 2 diabetes mellitus without complications (principal); E78.2 Mixed hyperlipidemia; Z79.84 Long term (current) use of oral hypoglycemic drugs; Z79.4 Long term (current) use of insulin | CPT/HCPCS: 99214 ==

== ENCOUNTER 2023-07-03 09:51 | Outpatient (CLI) | payer MEDICARE, MEDICAID, SELFPAY ==
[2023-07-03 10:31] LABS: Estmated Average Glucose 203; Hemoglobin A1C 8.7 % (4.0-6.0)
[2023-07-03 10:32] LABS: Alanine Aminotransferase 24 U/L (0-41); Alkaline Phosphatase 180 U/L (40-130); Anion Gap 9.3 (5-19); Aspartate Amino Transferase 17 U/L (0-40); Blood Urea Nitrogen 13 mg/dL (6-20); Calcium 9.6 mg/dL (8.5-10.5); Carbon Dioxide 33 mmol/L (22-29); Chloride 94 mmol/L (98-107); Chol HDL Ratio 2.24 mg/dL (1.0-5.00); Cholesterol 150 mg/dL (0-200); Globulin 2.7 g/dL (1.3-4.6); Glomerular Filtration Rate 86.7 mL/min (90-130); Glucose 246 mg/dL (65-115); HDL Cholesterol 67 mg/dL (60-100); LDL Cholesterol Calculated 73 mg/dL (50-129); LDL HDL Ratio 1.09 RATIO (0.00-3.22); Osmolality Calculated 282 mOsm/kg (285-295); Potassium 4.3 mmol/L (3.5-5.1); Sodium 132 mmol/L (136-145); Total Bilirubin 0.3 mg/dL (0.15-1.2); Total Protein 6.7 g/dL (6.6-8.7); Triglycerides 52 mg/dL (0-150)
[2023-07-03 10:42] LABS: Creatinine Urine, Random 92 mg/dL (39-259); Microalbum Creatinine Ratio Ur 11 mg/dL (0-20); Microalbumin Random Urine 1 ug/dL (0-20)
== END 2023-07-03 09:52 | disposition home or self-care (01) ==
LOC: LAB 09:55
PROVIDERS: PCP Family Medicine; Visit Provider Internal Medicine
DX: E78.2 Mixed hyperlipidemia (principal); E11.9 Type 2 diabetes mellitus without complications
CPT/HCPCS: 36415; 80053; 80061; 82044; 83036

== ENCOUNTER → 2023-07-15 09:48 | Outpatient (BNVA) | payer MEDICARE, MEDICAID, SELFPAY | PROVIDERS: PCP Family Medicine; Visit Provider Internal Medicine | DX: E11.9 Type 2 diabetes mellitus without complications (principal); E78.2 Mixed hyperlipidemia; Z79.4 Long term (current) use of insulin; Z79.84 Long term (current) use of oral hypoglycemic drugs | CPT/HCPCS: 99214 ==

== ENCOUNTER 2023-09-30 08:21 | Outpatient (CLI) | payer MEDICARE, MEDICAID, SELFPAY ==
[2023-09-30 09:16] LABS: Estmated Average Glucose 186; Hemoglobin A1C 8.1 % (4.0-6.0)
[2023-09-30 09:19] LABS: Creatinine Urine, Random 55 mg/dL (39-259); Microalbum Creatinine Ratio Ur 18 mg/dL (0-20); Microalbumin Random Urine 1 ug/dL (0-20)
[2023-09-30 09:21] LABS: Alanine Aminotransferase 26 U/L (0-41); Albumin Level 4.6 g/dL (3.5-5.2); Alkaline Phosphatase 119 U/L (40-130); Aspartate Amino Transferase 20 U/L (0-40); Blood Urea Nitrogen 10 mg/dL (6-20); Calcium 9.8 mg/dL (8.5-10.5); Carbon Dioxide 30 mmol/L (22-29); Chloride 87 mmol/L (98-107); Chol HDL Ratio 2.61 mg/dL (1.0-5.00); Cholesterol 209 mg/dL (0-200); Globulin 3.3 g/dL (1.3-4.6); Glomerular Filtration Rate 115.8 mL/min (90-130); Glucose 185 mg/dL (65-115); HDL Cholesterol 80 mg/dL (60-100); LDL Cholesterol Calculated 101 mg/dL (50-129); LDL HDL Ratio 1.26 RATIO (0.00-3.22); Osmolality Calculated 270 mOsm/kg (285-295); Sodium 128 mmol/L (136-145); Total Bilirubin 0.7 mg/dL (0.15-1.2); Total Protein 7.9 g/dL (6.6-8.7); Triglycerides 142 mg/dL (0-150)
[2023-09-30 09:51] LABS: Anion Gap 14.9 (5-19); Potassium 3.9 mmol/L (3.5-5.1)
== END 2023-09-30 08:22 | disposition home or self-care (01) ==
LOC: LAB 08:22
PROVIDERS: PCP Family Medicine; Visit Provider Internal Medicine
DX: E11.9 Type 2 diabetes mellitus without complications (principal)
CPT/HCPCS: 36415; 80053; 80061; 82044; 83036

== ENCOUNTER → 2023-10-16 10:13 | Outpatient (BNVA) | payer MEDICARE, MEDICAID, SELFPAY | PROVIDERS: PCP Family Medicine; Visit Provider Internal Medicine | DX: E11.9 Type 2 diabetes mellitus without complications (principal); E78.2 Mixed hyperlipidemia; Z79.4 Long term (current) use of insulin; Z79.84 Long term (current) use of oral hypoglycemic drugs | CPT/HCPCS: 99214 ==

== ENCOUNTER 2024-01-19 09:11 | Outpatient (CLI) | payer MEDICARE, MEDICAID, SELFPAY ==
[2024-01-19 10:12] LABS: Estmated Average Glucose 171; Hemoglobin A1C 7.6 % (4.0-6.0)
[2024-01-19 10:20] LABS: Alanine Aminotransferase 22 U/L (0-41); Albumin Level 4.1 g/dL (3.5-5.2); Alkaline Phosphatase 122 U/L (40-130); Anion Gap 14.3 (5-19); Aspartate Amino Transferase 24 U/L (0-40); Blood Urea Nitrogen 7 mg/dL (6-20); Calcium 9.3 mg/dL (8.5-10.5); Carbon Dioxide 29 mmol/L (22-29); Chloride 93 mmol/L (98-107); Chol HDL Ratio 1.74 mg/dL (1.0-5.00); Cholesterol 165 mg/dL (0-200); Globulin 2.9 g/dL (1.3-4.6); Glomerular Filtration Rate 99.3 mL/min (90-130); Glucose 191 mg/dL (65-115); HDL Cholesterol 95 mg/dL (60-100); LDL Cholesterol Calculated 56 mg/dL (50-129); LDL HDL Ratio 0.59 RATIO (0.00-3.22); Osmolality Calculated 275 mOsm/kg (285-295); Potassium 5.3 mmol/L (3.5-5.1); Sodium 131 mmol/L (136-145); Total Bilirubin 0.7 mg/dL (0.15-1.2); Triglycerides 70 mg/dL (0-150)
[2024-01-19 10:24] LABS: Creatinine Urine, Random 73 mg/dL (39-259); Microalbum Creatinine Ratio Ur 14 mg/dL (0-20); Microalbumin Random Urine 1 ug/dL (0-20)
== END 2024-01-19 09:12 | disposition home or self-care (01) ==
LOC: LAB 09:13
PROVIDERS: PCP Family Medicine; Visit Provider Internal Medicine
DX: E11.9 Type 2 diabetes mellitus without complications (principal); E78.2 Mixed hyperlipidemia
CPT/HCPCS: 36415; 80053; 80061; 82044; 83036

== ENCOUNTER → 2024-01-25 10:35 | Outpatient (BNVA) | payer MEDICARE, MEDICAID, SELFPAY | PROVIDERS: PCP Family Medicine; Visit Provider Internal Medicine | DX: E11.9 Type 2 diabetes mellitus without complications (principal); E78.2 Mixed hyperlipidemia; Z79.4 Long term (current) use of insulin; Z79.84 Long term (current) use of oral hypoglycemic drugs | CPT/HCPCS: 99214 ==

== ENCOUNTER → 2024-04-11 11:12 | Outpatient (BNVA) | payer MEDICARE, MEDICAID, SELFPAY | PROVIDERS: PCP Family Medicine; Visit Provider Internal Medicine | DX: E10.9 Type 1 diabetes mellitus without complications (principal); E78.2 Mixed hyperlipidemia; Z79.4 Long term (current) use of insulin; Z79.84 Long term (current) use of oral hypoglycemic drugs | CPT/HCPCS: 36415; 80048; 99214 ==

== ENCOUNTER 2024-06-28 13:52 | Outpatient (CLI) | payer MEDICARE, MEDICAID, SELFPAY ==
[2024-06-28 14:34] LABS: Alanine Aminotransferase 20 U/L (0-41); Albumin Level 4.3 g/dL (3.5-5.2); Alkaline Phosphatase 96 U/L (40-130); Anion Gap 17.1 (5-19); Aspartate Amino Transferase 20 U/L (0-40); Blood Urea Nitrogen 7 mg/dL (6-20); Calcium 9.6 mg/dL (8.5-10.5); Carbon Dioxide 29 mmol/L (22-29); Chloride 89 mmol/L (98-107); Chol HDL Ratio 2.11 mg/dL (1.0-5.00); Cholesterol 152 mg/dL (0-200); Globulin 3.3 g/dL (1.3-4.6); Glomerular Filtration Rate 137.9 mL/min (90-130); Glucose 192 mg/dL (65-115); HDL Cholesterol 72 mg/dL (60-100); LDL Cholesterol Calculated 66 mg/dL (50-129); LDL HDL Ratio 0.92 RATIO (0.00-3.22); Osmolality Calculated 275 mOsm/kg (285-295); Potassium 4.1 mmol/L (3.5-5.1); Sodium 131 mmol/L (136-145); Total Bilirubin 0.4 mg/dL (0.15-1.2); Total Protein 7.6 g/dL (6.6-8.7); Triglycerides 71 mg/dL (0-150)
[2024-06-28 14:36] LABS: Estmated Average Glucose 134; Hemoglobin A1C 6.3 % (4.0-6.0)
[2024-06-28 14:40] LABS: Creatinine Urine, Random 97 mg/dL (39-259); Microalbum Creatinine Ratio Ur 10 mg/dL (0-20); Microalbumin Random Urine 1 ug/dL (0-20)
== END 2024-06-28 13:53 | disposition home or self-care (01) ==
LOC: LAB 13:54
PROVIDERS: PCP Family Medicine; Visit Provider Internal Medicine
DX: E11.9 Type 2 diabetes mellitus without complications (principal)
CPT/HCPCS: 36415; 80053; 80061; 82044; 83036

== ENCOUNTER → 2024-08-08 12:06 | Outpatient (BNVA) | payer MEDICARE, MEDICAID, SELFPAY | PROVIDERS: PCP Family Medicine; Visit Provider Internal Medicine | DX: E11.9 Type 2 diabetes mellitus without complications (principal); E78.2 Mixed hyperlipidemia | CPT/HCPCS: 99214 ==

== ENCOUNTER 2024-11-04 10:03 | Outpatient (CLI) | payer MEDICARE, MEDICAID, SELFPAY ==
[2024-11-04 10:46] LABS: Estmated Average Glucose 151; Hemoglobin A1C 6.9 % (4.0-6.0)
[2024-11-04 10:49] LABS: Alanine Aminotransferase 21 U/L (0-41); Albumin Level 4.2 g/dL (3.5-5.2); Alkaline Phosphatase 130 U/L (40-130); Anion Gap 16.4 (5-19); Aspartate Amino Transferase 25 U/L (0-40); Blood Urea Nitrogen 4 mg/dL (6-20); Calcium 9.3 mg/dL (8.5-10.5); Carbon Dioxide 28 mmol/L (22-29); Chloride 85 mmol/L (98-107); Cholesterol 157 mg/dL (0-200); Globulin 2.8 g/dL (1.3-4.6); Glomerular Filtration Rate 137.9 mL/min (90-130); Glucose 213 mg/dL (65-115); HDL Cholesterol 87 mg/dL (60-100); LDL Cholesterol Calculated 57 mg/dL (50-129); LDL HDL Ratio 0.66 RATIO (0.00-3.22); Osmolality Calculated 261 mOsm/kg (285-295); Potassium 5.4 mmol/L (3.5-5.1); Sodium 124 mmol/L (136-145); Total Bilirubin 0.4 mg/dL (0.15-1.2); Triglycerides 66 mg/dL (0-150)
[2024-11-04 11:02] LABS: Creatinine Urine, Random 52 mg/dL (39-259); Microalbumin Random Urine 3 ug/dL (0-20)
[2024-11-04 11:04] LABS: Microalbum Creatinine Ratio Ur 58 mg/dL (0-20)
== END 2024-11-04 10:04 | disposition home or self-care (01) ==
PROVIDERS: PCP Family Medicine; Visit Provider Internal Medicine
DX: E78.2 Mixed hyperlipidemia (principal); E11.9 Type 2 diabetes mellitus without complications
CPT/HCPCS: 36415; 80053; 80061; 82044; 83036

== ENCOUNTER → 2024-11-08 10:21 | Outpatient (BNVA) | payer MEDICARE, MEDICAID, SELFPAY | PROVIDERS: PCP Family Medicine; Visit Provider Internal Medicine | DX: E11.9 Type 2 diabetes mellitus without complications (principal); E78.2 Mixed hyperlipidemia | CPT/HCPCS: 99214 ==

== ENCOUNTER 2025-01-23 09:57 | Outpatient (CLI) | payer MEDICARE, MEDICAID, SELFPAY ==
[2025-01-23 11:10] LABS: Estmated Average Glucose 160; Hemoglobin A1C 7.2 % (4.0-6.0)
[2025-01-23 11:26] LABS: Alanine Aminotransferase 23 U/L (0-41); Albumin Level 4.2 g/dL (3.5-5.2); Alkaline Phosphatase 145 U/L (40-130); Anion Gap 17.2 (5-19); Aspartate Amino Transferase 20 U/L (0-40); Blood Urea Nitrogen 7 mg/dL (6-20); Calcium 9.9 mg/dL (8.5-10.5); Carbon Dioxide 29 mmol/L (22-29); Chloride 92 mmol/L (98-107); Cholesterol 193 mg/dL (0-200); Globulin 3.2 g/dL (1.3-4.6); Glucose 151 mg/dL (65-115); HDL Cholesterol 54 mg/dL (60-100); Osmolality Calculated 279 mOsm/kg (285-295); Potassium 4.2 mmol/L (3.5-5.1); Sodium 134 mmol/L (136-145); Total Protein 7.4 g/dL (6.6-8.7); Triglycerides 141 mg/dL (0-150)
[2025-01-23 11:29] LABS: Creatinine Urine, Random 53 mg/dL (39-259); Microalbum Creatinine Ratio Ur 19 mg/dL (0-20)
== END 2025-01-23 09:58 | disposition home or self-care (01) ==
LOC: LAB 10:01
PROVIDERS: PCP Family Medicine; Visit Provider Internal Medicine
DX: E78.2 Mixed hyperlipidemia (principal); E11.9 Type 2 diabetes mellitus without complications
CPT/HCPCS: 36415; 80053; 80061; 82044; 83036

== ENCOUNTER → 2025-02-01 08:24 | Outpatient (BNVA) | payer MEDICARE, MEDICAID, SELFPAY | PROVIDERS: PCP Family Medicine; Visit Provider Nurse Practitioner Family | DX: L23.9 Allergic contact dermatitis, unspecified cause (principal) | CPT/HCPCS: 99213 ==

== ENCOUNTER → 2025-02-07 10:18 | Outpatient (BNVA) | payer MEDICARE, MEDICAID, SELFPAY | PROVIDERS: PCP Family Medicine; Visit Provider Internal Medicine | DX: E11.9 Type 2 diabetes mellitus without complications (principal); E78.2 Mixed hyperlipidemia | CPT/HCPCS: 99214 ==

== ENCOUNTER → 2025-03-03 10:22 | Outpatient (BNVA) | payer MEDICARE, MEDICAID, SELFPAY | PROVIDERS: PCP Family Medicine; Visit Provider Nurse Practitioner Family | DX: L23.9 Allergic contact dermatitis, unspecified cause (principal); L81.0 Postinflammatory hyperpigmentation | CPT/HCPCS: 99213 ==

== ENCOUNTER → 2025-03-16 14:42 | Outpatient (BNVA) | payer MEDICARE, MEDICAID, SELFPAY | PROVIDERS: PCP Family Medicine; Visit Provider Internal Medicine | DX: E11.9 Type 2 diabetes mellitus without complications (principal); E78.2 Mixed hyperlipidemia | CPT/HCPCS: 99213 ==

== ENCOUNTER → 2025-03-30 08:06 | Outpatient (BNVA) | payer MEDICARE, MEDICAID, SELFPAY | PROVIDERS: PCP Family Medicine; Visit Provider Internal Medicine | DX: E11.65 Type 2 diabetes mellitus with hyperglycemia (principal); E78.2 Mixed hyperlipidemia | CPT/HCPCS: 99214 ==

== ENCOUNTER 2025-04-07 11:48 | Outpatient (CLI) | payer MEDICARE, MEDICAID, SELFPAY ==
[2025-04-07 13:09] LABS: Alanine Aminotransferase 23 U/L (0-41); Albumin Level 4.2 g/dL (3.5-5.2); Alkaline Phosphatase 154 U/L (40-130); Anion Gap 17.1 (5-19); Aspartate Amino Transferase 26 U/L (0-40); Blood Urea Nitrogen 5 mg/dL (6-20); Calcium 9.8 mg/dL (8.5-10.5); Carbon Dioxide 31 mmol/L (22-29); Chloride 91 mmol/L (98-107); Globulin 3.1 g/dL (1.3-4.6); Glucose 177 mg/dL (65-115); Osmolality Calculated 280 mOsm/kg (285-295); Potassium 5.1 mmol/L (3.5-5.1); Sodium 134 mmol/L (136-145); Total Protein 7.3 g/dL (6.6-8.7)
== END 2025-04-07 11:49 | disposition home or self-care (01) ==
PROVIDERS: PCP Family Medicine; Visit Provider Internal Medicine
DX: E10.65 Type 1 diabetes mellitus with hyperglycemia (principal); Z09 Encounter for follow-up examination after completed treatment for conditions other than malignant neoplasm
CPT/HCPCS: 36415; 80053; 84681; 86337; 86341

== ENCOUNTER 2025-05-08 08:40 | Outpatient (CLI) | payer MEDICARE, MEDICAID, SELFPAY ==
[2025-05-08 09:47] LABS: Alanine Aminotransferase 17 U/L (0-41); Albumin Level 4.2 g/dL (3.5-5.2); Alkaline Phosphatase 140 U/L (40-130); Anion Gap 15.1 (5-19); Aspartate Amino Transferase 21 U/L (0-40); Blood Urea Nitrogen 5 mg/dL (6-20); Calcium 9.1 mg/dL (8.5-10.5); Carbon Dioxide 29 mmol/L (22-29); Chloride 91 mmol/L (98-107); Cholesterol 169 mg/dL (0-200); Globulin 2.4 g/dL (1.3-4.6); Glucose 156 mg/dL (65-115); HDL Cholesterol 107 mg/dL (60-100); Osmolality Calculated 272 mOsm/kg (285-295); Potassium 4.1 mmol/L (3.5-5.1); Sodium 131 mmol/L (136-145); Total Protein 6.6 g/dL (6.6-8.7); Triglycerides 49 mg/dL (0-150)
[2025-05-08 09:48] LABS: Creatinine Urine, Random 74 mg/dL (39-259); Microalbum Creatinine Ratio Ur 27 mg/dL (0-20)
[2025-05-08 10:07] LABS: Estmated Average Glucose 148; Hemoglobin A1C 6.8 % (4.0-6.0)
== END 2025-05-08 08:41 | disposition home or self-care (01) ==
PROVIDERS: PCP Family Medicine; Visit Provider Internal Medicine
DX: E10.65 Type 1 diabetes mellitus with hyperglycemia (principal); Z09 Encounter for follow-up examination after completed treatment for conditions other than malignant neoplasm
CPT/HCPCS: 36415; 80053; 80061; 82044; 82947; 83036

== ENCOUNTER → 2025-05-09 10:00 | Outpatient (BNVA) | payer MEDICARE, MEDICAID, SELFPAY | PROVIDERS: PCP Family Medicine; Visit Provider Internal Medicine Endocrinology, Diabetes & Metabolism | DX: E10.65 Type 1 diabetes mellitus with hyperglycemia (principal); E78.2 Mixed hyperlipidemia; Z79.4 Long term (current) use of insulin | CPT/HCPCS: 99214 ==

== ENCOUNTER → 2025-05-31 09:58 | Outpatient (BNVA) | payer MEDICARE, MEDICAID, SELFPAY | PROVIDERS: PCP Family Medicine; Visit Provider Nurse Practitioner Family | DX: L23.9 Allergic contact dermatitis, unspecified cause (principal); L57.8 Other skin changes due to chronic exposure to nonionizing radiation; L81.4 Other melanin hyperpigmentation | CPT/HCPCS: 99213 ==